=== PATIENT | female | born 1975 ===

== ENCOUNTER 2024-05-13 04:07 | Day surgery (SDC) | payer BC ==
[2024-05-11 13:57] VITALS: BMI 29.5
[2024-05-13] MEDS ORDERED: MIDAZOLAM HCL 2 MG/2 ML SINGLE DOSE VIAL ONE (08:57)
[2024-05-13] MEDS ORDERED: PROPOFOL 40 ML ONE (08:57)
[2024-05-13] MEDS ORDERED: IBUPROFEN 400 MG TABLET (FP) PO PRN (09:04)
[2024-05-13] MEDS ORDERED: oxyCODONE HCL 5 MG TABLET PO PRN (09:04)
[2024-05-13] MEDS ORDERED: ACETAMINOPHEN 325 MG TABLET (FP) PO PRN (09:04)
[2024-05-13] MEDS ORDERED: ONDANSETRON 4 MG/2 ML VIAL IVPUSH PRN ×2 (09:05→10:15)
[2024-05-13] MEDS: SILVER NITRATE 75% APPLIC STCK 1 PKT EACH TP ONE (09:56)
[2024-05-13] MEDS ORDERED: LIDOCAINE HCL/PF 2% SDV 5ML VIAL ONE (10:03)
[2024-05-13] MEDS ORDERED: ONDANSETRON 4 MG/2 ML VIAL ONE (10:03)
[2024-05-13] MEDS ORDERED: LACTATED RINGERS SOLUTION 1,000 ML IV SCH (10:15)
[2024-05-13] MEDS ORDERED: ACETAMINOPHEN INJECTION 100 ML ONE (10:29)
[2024-05-13] MEDS ORDERED: KETOROLAC TROMETHAMINE 30 MG/1 ML VIAL ONE (10:29)
[2024-05-13] MEDS: KETOROLAC TROMETHAMINE 30 MG/1 ML VIAL IVPUSH ONE (10:33)
[2024-05-13] MEDS: ACETAMINOPHEN 1000 MG/100 ML BAG IVPB ONE (10:34)
[2024-05-13 10:39] VITALS: RESP 16
[2024-05-13 11:52] VITALS: BP 100/70; PULSE 80; TEMP 97.1
== END 2024-05-13 12:14 | disposition home or self-care (01) ==
LOC: JASU-SURG 04:07
PROVIDERS: ATTEND Obstetrics & Gynecology
PROC: 0UDB8ZX Extraction of Endometrium, Via Natural or Artificial Opening Endoscopic, Diagnostic (ICD-10-PCS; principal; 2024-05-13 09:00)
DX: N84.0 Polyp of corpus uteri (principal)
CPT/HCPCS: 81025; 82962; 86850; 86900; 86901; 88305-TC; 94760; J0131